=== PATIENT | female | born 1995 | race Caucasian/White ===

== ENCOUNTER 2019-08-19 07:31 | Emergency (ER) | payer OTHER ==
[2019-08-19 07:45] VITALS: BP 116/67
--- NOTE | 2019-08-19 08:06 | UC ---
Throat Pain/Nasal Luis Carlos HPI - HPI Summary HPI Summary: patient has had ST for 1 week. has been taking vit C, zinc and drinking tea but no better. also has ear congestion. no fever or cough - History of Current Complaint Chief Complaint: UCGeneralIllness Stated Complaint: SORE THROAT Time Seen by Provider: 08/19/19 07:51 Hx Obtained From: Patient Hx Last Menstrual Period: two weeks ago Onset/Duration: Gradual Onset Severity: Moderate Pain Intensity: 7 Cough: None Associated Signs & Symptoms: Negative: Hoarseness, Sinus Discomfort, Fever, Rash - Allergies/Home Medications Allergies/Adverse Reactions: Allergies Allergy/AdvReac Type Severity Reaction Status Date / Time Penicillins Allergy Hives Verified 08/19/19 07:45 Sulfa (Sulfonamide Allergy Hives Verified 08/19/19 07:45 Antibiotics) Home Medications: Home Medications Ibuprofen 400 mg PO ONCE PRN 08/19/19 [History Confirmed 08/19/19] PMH/Surg Hx/FS Hx/Imm Hx Previously Healthy: Yes - Surgical History Surgical History: None - Family History Known Family History: Positive: None - Social History Occupation: Employed Full-time Lives: With Family Alcohol Use: Occasionally Substance Use Type: None Smoking Status (MU): Never Smoked Tobacco Review of Systems All Other Systems Reviewed And Are Negative: Yes Constitutional: Positive: Fatigue Skin: Positive: Negative Eyes: Positive: Negative ENT: Positive: Sore Throat Respiratory: Positive: Negative. Negative: Shortness Of Breath, Cough Cardiovascular: Positive: Negative Gastrointestinal: Positive: Negative Neurological: Positive: Negative. Negative: Headache Psychological: Positive: Negative Is Patient Immunocompromised?: No Physical Exam Triage Information Reviewed: Yes Appearance: Well-Appearing, No Pain Distress, Well-Nourished Vital Signs: Initial Vital Signs Temp 98.7 F 08/19/19 07:40 Pulse 69 08/19/19 07:40 Resp 18 08/19/19 07:40 BP 116/67 08/19/19 07:40 Pulse Ox 100 08/19/19 07:40 Vital Signs Reviewed: Yes Eye Exam: Normal Eyes: Positive: Conjunctiva Clear ENT: Positive: Pharyngeal erythema, TMs normal, Tonsillar swelling - patient states she has large tonsils historically. Negative: Nasal congestion, Tonsillar exudate Neck exam: Normal Neck: Positive: Enlarged Nodes @ - bilateral anterior cervical Respiratory: Positive: Lungs clear Cardiovascular Exam: Normal Cardiovascular: Positive: RRR Neurological Exam: Normal Psychological Exam: Normal Skin Exam: Normal Skin: Negative: Rashes Throat Pain/Nasal Course/Dx - Differential Dx/Diagnosis Differential Diagnosis/HQI/PQRI: Influenza, Otitis Media, Pharyngitis, Sinusitis , Tonsillitis, URI Provider Diagnosis: Pharyngitis Discharge ED - Sign-Out/Discharge Documenting (check all that apply): Patient Departure All imaging exams completed and their final reports reviewed: No Studies - Discharge Plan Condition: Good Disposition: HOME Patient Education Materials: Pharyngitis (ED) Referrals: Almita Da Silva MD [Primary Care Provider] - 2 Days (if no better) Additional Instructions: drink plenty of fluids use ibuprofen 600-800mg three-four times a day for pain sudafed (from behind the counter) may help decongest your ears - Billing Disposition and Condition Condition: GOOD Disposition: Home
== END 2019-08-19 08:13 | disposition home or self-care (01) ==
LOC: UCEAST 07:31
DX: J02.9 Acute pharyngitis, unspecified (principal); H83.8X9 Other specified diseases of inner ear, unspecified ear; R53.83 Other fatigue; Z88.0 Allergy status to penicillin; Z88.2 Allergy status to sulfonamides
CPT/HCPCS: 87651; 99211; G0463